=== PATIENT | female | born 1965 | race Two or more races ===

== ENCOUNTER 2025-02-25 10:00 | Day surgery (SDC) | payer OTHER ==
[~2025-02-25 10:00] MED LIST: BUPROPION HCL200 MG PO; CLONAZEPAM0.5 MG PO; LOSARTAN-HCTZ1 EACH PO; SIMVASTATIN20 MG PO; TOPROL XL25 M1 PO; XANAX0.25 MG PO
[2025-02-25] MEDS ORDERED: CEFTRIAXONE SODIUM 2,000 MG VIAL ONE (10:42)
[2025-02-25] MEDS ORDERED: METRONIDAZOLE/SODIUM CHLORIDE 500 MG/100 ML PIGGYBACK IV ONE (10:43)
[2025-02-25] MEDS ORDERED: POVIDONE-IODINE 118 ML BOTT TOP ONE (12:39)
[2025-02-25] MEDS ORDERED: DIBUCAINE 30 GM TUBE ONE (12:39)
[2025-02-25] MEDS ORDERED: HEMOSTATIC MATRIX 1 KIT KIT TOP ONE (12:39)
[2025-02-25] MEDS ORDERED: BUPIVACAINE HCL/MPF 0.5% 30ML VIAL ONE (12:39)
[2025-02-25] MEDS ORDERED: LIDOCAINE HCL 2% 20ML VIAL IJ ONE (12:39)
== END 2025-02-25 18:45 | disposition home or self-care (01) ==
LOC: CIR.AMB 10:00
PROVIDERS: ATTEND Colon & Rectal Surgery
DX: K64.2 Third degree hemorrhoids (principal); K64.4 Residual hemorrhoidal skin tags; Z88.2 Allergy status to sulfonamides